=== PATIENT | female | born 1975 | race Native Hawaiian/Other Pacific Islander ===

== ENCOUNTER 2017-03-25 09:34 | Emergency (ER) | payer OTHER ==
[~2017-03-25] VITALS: Ht 152.4 cm; Wt 74.8 kg
[2017-03-25 09:42] VITALS: BP 156/99; TEMP 98.2
[2017-03-25 10:42] LABS: PLATELET COUNT 195 K/uL (152-353)
[2017-03-25 10:54] LABS: POTASSIUM 3.5 mmol/L (3.6-5.2); SODIUM 137 mmol/L (136-145)
== END 2017-03-25 12:30 | disposition left against medical advice (07) ==
LOC: ED 09:34
DX: R10.84 Generalized abdominal pain (principal)
CPT/HCPCS: 36415; 80053; 82150; 83690; 85027; 96360; 96375; 99284; J1885; J2405